=== PATIENT | male | born 1980 | race Caucasian/White ===

== ENCOUNTER 2021-07-17 20:35 | Emergency (ER) | payer OTHER ==
[2021-07-17] MEDS ORDERED: Midazolam HCl 2 mg/2 ml Vial ONE (21:26)
[2021-07-17] MEDS ORDERED: Boostrix 0.5 ML (Tdap) VIAL ONE (21:26)
[2021-07-17] MEDS ORDERED: Morphine 4 MG/ML VIAL ONE (22:07)
[2021-07-17] MEDS ORDERED: Ketorolac Tromethamine 30 MG/ML VIAL ONE (22:07)
== END 2021-07-17 22:39 | disposition home or self-care (01) ==
LOC: ERS 20:35
DX: S01.02XA Laceration with foreign body of scalp, initial encounter (principal); W17.89XA Other fall from one level to another, initial encounter; Y93.44 Activity, trampolining; Y92.830 Public park as the place of occurrence of the external cause; Z23 Encounter for immunization
CPT/HCPCS: 12034; 90471; 90715; 96374; 96375; 99152; 99153; J1885; J2250; J2270